=== PATIENT | male | born 1960 | race African-American/Black ===

== ENCOUNTER 2018-05-20 20:01 | Inpatient (IN) ==
[2018-05-20 20:31] LABS: Basophils % 0.2 % (0.0-0.8); Eosinophils # 0.1 10*3/uL (0.0-0.87); Eosinophils % 0.6 % (0.00-10.9); Hematocrit 36.7 VOL% (42.0-52.0); Hemoglobin 12.2 GM/DL (14.0-18.0); Immature Granulocytes % 0.5 %; Immature Granulocytes Absolute 0.08 #; Lymphocytes # 1.7 10*3/uL (1.4-4.0); Lymphocytes % 10.9 % (21.2-54.2); Mean Corpuscular HGB Conc 33.2 GM/DL (32-36); Mean Corpuscular Hemoglobin 34 PG (27-34); Mean Corpuscular Volume 101.7 FL (87-102); Mean Platelet Volume 9.4 FL (9.6-12.0); Monocytes % 6.1 % (1.7-12.7); Neutrophils % 81.7 % (38.7-73.9); Platelet Count 456 T/CUMM (130-400); Red Blood Count 3.61 MC/CUMM (3.8-5.5); Red Cell Distribution Width 12.2 % (9.3-17.3)
[2018-05-20 20:56] LABS: Alanine Aminotransferase 44 U/L (16-61); Albumin 3.9 G/DL (3.4-5.0); Alkaline Phosphatase 115 U/L (45-117); Aspartate Amino Transferase 26 U/L (0-37); Blood Urea Nitrogen 70 MG/DL (7-18); Calcium 10.1 MG/DL (8.5-10.1); Glucose 121 MG/DL (74-106); Potassium 4.2 MMOL/L (3.5-5.1); Sodium 136 MMOL/L (136-145); Total Protein 8.8 G/DL (6.4-8.3)
[2018-05-20 21:29] LABS: Apearance,Urine Slightly Hazy (Clear); Bilirubin,Urine Negative (Negative); Blood, Urine Negative (Negative); Glucose,Urine (UA) Negative (Negative); Hyaline Casts,Urine 86 /LPF (0-3); Ketones,Urine Negative (Negative); Mucus,Urine Occasional /LPF (Occasional); Nitrite,Urine Negative (Negative); Protein,Urine 30 MG/DL; RBC,Urine <1 /HPF (0-4); Squamous Epithelial Cell,Urine Occasional /HPF (0-10); Urine Color Amber (Yellow); Urine Specific Gravity 1.021 (1.001-1.035); WBC,Urine 2 /HPF (0-6)
[2018-05-20] MEDS ORDERED: ONDANSETRON 4 MG/2 ML VIAL IV PRN (22:45)
[2018-05-20 23:16] LABS: Risk Ratio 3.42; VLDL CHOLESTEROL 19.4 MG/DL
[2018-05-21] MEDS: SODIUM CHLORIDE 0.9% 1,000 ML IV SCH ×4 (00:31→23:31)
[2018-05-21 05:23] LABS: Basophils % 0.2 % (0.0-0.8); Eosinophils # 0.1 10*3/uL (0.0-0.87); Eosinophils % 0.7 % (0.00-10.9); Hematocrit 33.3 VOL% (42.0-52.0); Hemoglobin 11.3 GM/DL (14.0-18.0); Immature Granulocytes % 0.6 %; Immature Granulocytes Absolute 0.09 #; Lymphocytes # 2.3 10*3/uL (1.4-4.0); Lymphocytes % 15.8 % (21.2-54.2); Mean Corpuscular HGB Conc 33.9 GM/DL (32-36); Mean Corpuscular Hemoglobin 34 PG (27-34); Mean Corpuscular Volume 101.2 FL (87-102); Mean Platelet Volume 9.7 FL (9.6-12.0); Monocytes # 1.1 10*3/uL (0.11-0.8); Monocytes % 7.3 % (1.7-12.7); Neutrophils % 75.4 % (38.7-73.9); Platelet Count 435 T/CUMM (130-400); Red Blood Count 3.29 MC/CUMM (3.8-5.5); Red Cell Distribution Width 12.3 % (9.3-17.3); White Blood Count 14.6 T/CUMM (4-12)
[2018-05-21 05:37] LABS: Calcium 9.6 MG/DL (8.5-10.1); Potassium 4.3 MMOL/L (3.5-5.1)
[2018-05-21] MEDS ORDERED: PANTOPRAZOLE 40 MG TABLET PO ONE (09:33)
[2018-05-21] MEDS: ALLOPURINOL 100 MG TABLET PO SCH (09:39)
[2018-05-21] MEDS: PANTOPRAZOLE 40 MG TABLET PO SCH (09:39)
[2018-05-21] MEDS: ALFUZOSIN 10 MG TABLET PO SCH (09:39)
[2018-05-21] MEDS ORDERED: ACETAMINOPHEN 325 MG TABLET ONE (09:44)
[2018-05-21] MEDS: ACETAMINOPHEN 325 MG TABLET PO PRN ×2 (09:44→14:24)
[2018-05-21] MEDS: HEPARIN 5,000 UNIT/1 ML VIAL SUBCUT SCH ×2 (13:19→20:12)
[2018-05-21] MEDS ORDERED: ROSUVASTATIN 20 MG TABLET PO SCH (21:00)
[2018-05-22] MEDS: ACETAMINOPHEN 325 MG TABLET PO PRN (00:06)
[2018-05-22] MEDS: HEPARIN 5,000 UNIT/1 ML VIAL SUBCUT SCH ×2 (04:31→13:21)
[2018-05-22 04:50] LABS: Basophils % 0.4 % (0.0-0.8); Eosinophils # 0.3 10*3/uL (0.0-0.87); Eosinophils % 2.4 % (0.00-10.9); Hematocrit 31.6 VOL% (42.0-52.0); Hemoglobin 10.2 GM/DL (14.0-18.0); Immature Granulocytes % 0.5 %; Immature Granulocytes Absolute 0.05 #; Lymphocytes # 2.7 10*3/uL (1.4-4.0); Lymphocytes % 26.1 % (21.2-54.2); Mean Corpuscular HGB Conc 32.3 GM/DL (32-36); Mean Corpuscular Hemoglobin 33 PG (27-34); Mean Corpuscular Volume 103.3 FL (87-102); Mean Platelet Volume 9.4 FL (9.6-12.0); Monocytes # 0.8 10*3/uL (0.11-0.8); Neutrophils # 6.6 10*3/uL (1.4-7.4); Neutrophils % 62.6 % (38.7-73.9); Platelet Count 378 T/CUMM (130-400); Red Blood Count 3.06 MC/CUMM (3.8-5.5); Red Cell Distribution Width 12.3 % (9.3-17.3); White Blood Count 10.5 T/CUMM (4-12)
[2018-05-22 05:15] LABS: Calcium 8.8 MG/DL (8.5-10.1); Osmolality,Calculated 293.3 MOS/KG (273-304); Potassium 4.9 MMOL/L (3.5-5.1)
[2018-05-22] MEDS: SODIUM CHLORIDE 0.9% 1,000 ML IV SCH (06:04)
[2018-05-22] MEDS: PANTOPRAZOLE 40 MG TABLET PO SCH (08:48)
[2018-05-22] MEDS: ALFUZOSIN 10 MG TABLET PO SCH (08:48)
[2018-05-22] MEDS: ALLOPURINOL 100 MG TABLET PO SCH (08:48)
[2018-05-22 12:19] VITALS: BP 124/76
== END 2018-05-22 15:02 | disposition home or self-care (01) | DRG 312 ==
LOC: N.ED 20:01 → SUATTDRO 22:46 → N.EDINP 22:46 → N.TELEN 05-21 11:13
PROVIDERS: ADMIT Internal Medicine; ATTEND Internal Medicine Geriatric Medicine